=== PATIENT | female | born 1965 | race Hispanic/Latino ===

== ENCOUNTER 2016-10-17 15:38 | Emergency (ER) | payer OTHER ==
[~2016-10-17] VITALS: Ht 167.6 cm; Wt 81.6 kg
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
[2016-10-17] MEDS ORDERED: XANAX0.5 M1 PO (17:14)
[2016-10-17] MEDS ORDERED: MULTI-DAY VITA1 EACH PO (17:15)
[2016-10-17 17:19] LABS: ABSOLUTE BASOPHIL COUNT 0.1 /CUMM (0.0-0.2); ABSOLUTE EOSINOPHIL COUNT 0.2 /CUMM (0.0-0.7); ABSOLUTE LYMPH COUNT 2.5 /CUMM (1.2-3.4); ABSOLUTE MONOCYTE COUNT 0.8 /CUMM (0.10-0.60); BASOPHIL % 1.1 % (0.0-2.0); EOSINOPHIL % 2.3 % (0-5); GRANULOCYTE % 58.7 % (42.2-75.2); HEMATOCRIT 42.6 % (37-47); MEAN CORPUSCULAR HGB 30.1 PG (27.0-31.0); MEAN CORPUSCULAR HGB CONC 34.3 G/DL (33.0-37.0); MEAN PLATELET VOLUME 8.2 FL (7.4-10.4); PLATELET COUNT 262 /CUMM (130-400); RBC DISTRIBUTION WIDTH 12.5 % (11.5-14.5); RED BLOOD CELL CT 4.84 /CUMM (4.20-5.40); WHITE BLOOD CELL COUNT 8.5 /CUMM (4.8-10.8)
[2016-10-17 19:33] VITALS: BP 118/74
== END 2016-10-17 19:36 ==
LOC: ERH 15:38
PROVIDERS: Physician Assistant
DX: R07.9 Chest pain, unspecified (principal); R51 Headache; R11.2 Nausea with vomiting, unspecified
CPT/HCPCS: 81003; 81025; 87804; 87804-59; 93005; 93010; 96374; 96375; J1885; J2405

== ENCOUNTER 2017-04-06 08:59 | Emergency (ER) | payer OTHER ==
[~2017-04-06] VITALS: Ht 165.1 cm; Wt 71.7 kg
[~2017-04-06 08:59] MED LIST: MULTI-DAY VITA1 EACH PO; XANAX0.5 M1 PO
--- NOTE | 2017-04-06 09:05 | ED GENERAL ADULT ---
History of Present Illness General Chief Complaint: ETOH/Drug Related Complaint Stated Complaint: BIBA OVERDOSE Source: patient, family, old records, EMS Exam Limitations: no limitations Vital Signs & Intake/Output Vital Signs & Intake/Output Vital Signs Date Time Temp Pulse Resp B/P B/P Pulse O2 O2 Flow FiO2 Mean Ox Delivery Rate 04/06 1302 98.0 64 16 108/64 99 Nasal 4.0L Cannula 04/06 1149 97.2 72 20 109/59 100 04/06 0946 96.9 70 20 105/68 100 Nasal 2.0L Cannula 04/06 0919 97 Nasal Cannula 04/06 0905 94.0 75 15 138/74 98 Nasal 2.0L Cannula Allergies Coded Allergies: No Known Allergies (04/06/17) Reconcile Medications Alprazolam (Xanax) 0.5 MG TABLET 1 TAB PO PRN ANXIETY (Reported) Multivitamin (Multi-Day Vitamins) 1 EACH TABLET 1 TAB PO DAILY SUPPLEMENT ( Reported) Triage Nurses Notes Reviewed? yes HPI: Patient he used heroin which she sniffed. Patient states this was only her third time using it. Patient overdosed. Patient was at. Bystanders began to perform CPR. Please department arrived and gave her 2 mg of intra nasal Narcan and continued the CPR. Upon EMS arrival. Patient had a good strong pulse so CPR was stopped and the patient received an additional dose of 2.8 mg of IV Narcan. After the IV Narcan patient woke up. Patient only complaint is chest tenderness after the CPR. Patient denies at this was any type of attempt to harm herself. Patient denies any suicidal or homicidal ideations. Patient states that she is very embarrassed that this happened. Patient states that she. Rarely uses drugs and this was only third time using heroin. Past History Travel History Traveled to [place] past 21 day No Medical History Any Pertinent Medical History? 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 No Review of Systems Review of Systems Constitutional: Reports: no symptoms. EENTM: Reports: no symptoms. Respiratory: Reports: no symptoms. Cardiovascular: Reports: see HPI, chest pain. GI: Reports: no symptoms. Genitourinary: Reports: no symptoms. Musculoskeletal: Reports: no symptoms. Skin: Reports: no symptoms. Neurological/Psychological: Reports: no symptoms. Hematologic/Endocrine: Reports: no symptoms. Immunologic/Allergic: Reports: no symptoms. All Other Systems: Reviewed and Negative Physical Exam Physical Exam General Appearance: well developed/nourished, alert, awake, anxious, mild distress Head: atraumatic, normal appearance Eyes: Bilateral: PERRL, EOMI. Ears, Nose, Throat: normal pharynx, normal ENT inspection, hearing grossly normal Neck: normal inspection, supple, full range of motion Respiratory: normal breath sounds, no respiratory distress, lungs clear, sternal tenderness to palpation Cardiovascular: regular rate/rhythm, normal peripheral pulses Gastrointestinal: normal bowel sounds, soft, non-tender, no organomegaly Back: normal inspection, normal range of motion Extremities: normal inspection, normal capillary refill, normal range of motion, no edema Neurologic/Psych: no motor/sensory deficits, awake, alert, oriented x 3, normal gait, normal mood/affect Skin: intact, normal color, warm/dry Lymphatic: no anterior cervical brab Core Measures ACS in differential dx? No CVA/TIA Diagnosis: No Severe Sepsis Present: No Septic Shock Present: No Progress Differential Diagnoses I considered the following diagnoses in my evaluation of the patient: [overdose, cardiac contusion, ptx] Plan of Care: Orders Procedure Date/time Status Telemetry/Software Lead 04/06 09 Active TROPONIN LEVEL 04/06 09 Complete COMPREHENSIVE METABOLIC PANEL 04/06 09 Complete CBC WITHOUT DIFFERENTIAL 04/06 904 Complete EKG 04/06 09 Active Laboratory Tests 04/06/17 0934: Anion Gap 7, Estimated GFR 47 L, BUN/Creatinine Ratio 19.2, Glucose 158 H, Calcium 9.1, Total Bilirubin 0.4, AST 34, ALT 51, Alkaline Phosphatase 93, Troponin I < 0.01, Total Protein 6.0 L, Albumin 3.9, Globulin 2.1, Albumin/ Globulin Ratio 1.9, CBC w Diff NO MAN DIFF REQ, RBC 4.93, MCV 89.2, MCH 29.8, RDW 12.9, MPV 7.8, Gran % 83.2 H, Lymphocytes % 10.5 L, Monocytes % 3.9, Eosinophils % 2.1, Basophils % 0.3, Absolute Granulocytes 8.4 H, Absolute Lymphocytes 1.1 L, Absolute Monocytes 0.4, Absolute Eosinophils 0.2, Absolute Basophils 0, PUBS MCHC 33.5 Diagnostic Imaging: Viewed by Me: Radiology Read. Discussed w/RAD: Radiology Read. CXR Impression: PATIENT: KRYSTAL BUTLER PRESENT AGE: 51 PATIENT ACCOUNT NO: [id number] : 64 LOCATION: [facility] ORDERING PHYSICIAN: ELAINE MCHUGH MD SERVICE DATE: 04/06/17 EXAM TYPE: RAD - XRY- PORTABLE CHEST XRAY EXAMINATION: XR PORTABLE CHEST CLINICAL INFORMATION: Chest pain post CPR. COMPARISON: None TECHNIQUE: AP 75 degrees upright view of the chest was obtained. FINDINGS: Cardiac and mediastinal silhouettes are normal in appearance. No evidence of pulmonary edema. There are mild increase in interstitial markings in the bilateral lungs without focal consolidation or pleural effusion. No displaced rib fractures are seen. IMPRESSION: No evidence of pulmonary edema or pneumothorax post CPR. No displaced rib fractures are seen. Mild increase in interstitial markings is present in the bilateral lungs. DICTATED BY: LIZ BELLO MD DATE/TIME DICTATED:04/06/17945 SAMPLE CLERK:SEVERO DATE/TIME TRANSCRIBED:04/06/17945 CONFIDENTIAL, DO NOT COPY WITHOUT APPROPRIATE AUTHORIZATION. <Electronically signed in Other Vendor System> SIGNED BY: LIZ BELLO MD 04/06/17 0951 Initial ED EKG: NSR, nonspecific ST T wave chg Prior EKG: unchanged Comments: Patient remained awake alert and oriented. Patient still states that she was not attempting to harm herself. Patient does not want anybody about detox. Departure Departure Disposition: HOME OR SELF CARE Condition: Stable Clinical Impression Primary Impression: Opiate overdose Qualifiers: Encounter type: initial encounter Injury intent: accidental or unintentional Qualified Code: T40.601A - Poisoning by unspecified narcotics, accidental (unintentional), initial encounter Referrals: ANOOP TAO MD (PCP/Family) Additional Instructions: YOU NEED TO STOP USING HEROIN RETURN IF WE CAN HELP YOU TO STOP USING DRUGS OR FOR ANY CONCERNS Departure Forms: Customer Survey General Discharge Information Critical Care Note Critical Care Note Critical Care Time: non-applicable
[2017-04-06 09:45] LABS: ABSOLUTE BASOPHIL COUNT 0 /CUMM (0.0-0.2); ABSOLUTE EOSINOPHIL COUNT 0.2 /CUMM (0.0-0.7); ABSOLUTE GRANULOCYTE CT 8.4 /CUMM (1.4-6.5); ABSOLUTE LYMPH COUNT 1.1 /CUMM (1.2-3.4); ABSOLUTE MONOCYTE COUNT 0.4 /CUMM (0.10-0.60); BASOPHIL % 0.3 % (0.0-2.0); EOSINOPHIL % 2.1 % (0-5); GRANULOCYTE % 83.2 % (42.2-75.2); MEAN CORPUSCULAR HGB 29.8 PG (27.0-31.0); MEAN CORPUSCULAR HGB CONC 33.5 G/DL (33.0-37.0); MEAN CORPUSCULAR VOLUME 89.2 FL (81.0-99.0); MEAN PLATELET VOLUME 7.8 FL (7.4-10.4); PLATELET COUNT 235 /CUMM (130-400); RBC DISTRIBUTION WIDTH 12.9 % (11.5-14.5); RED BLOOD CELL CT 4.93 /CUMM (4.20-5.40); WHITE BLOOD CELL COUNT 10.1 /CUMM (4.8-10.8)
--- NOTE | 2017-04-06 09:51 | RADIOLOGY REPORT ---
EXAMINATION: XR PORTABLE CHEST CLINICAL INFORMATION: Chest pain post CPR. COMPARISON: None TECHNIQUE: AP 75 degrees upright view of the chest was obtained. FINDINGS: Cardiac and mediastinal silhouettes are normal in appearance. No evidence of pulmonary edema. There are mild increase in interstitial markings in the bilateral lungs without focal consolidation or pleural effusion. No displaced rib fractures are seen. IMPRESSION: No evidence of pulmonary edema or pneumothorax post CPR. No displaced rib fractures are seen. Mild increase in interstitial markings is present in the bilateral lungs.
[2017-04-06 13:02] VITALS: BP 108/64
== END 2017-04-06 13:11 ==
LOC: ERH 08:59
PROVIDERS: Emergency Medicine
DX: T40.601A Poisoning by unspecified narcotics, accidental (unintentional), initial encounter (principal)
CPT/HCPCS: 93005; 93010